=== PATIENT | female | born 1985 | race Caucasian/White ===

== ENCOUNTER 2025-07-09 16:03 | Outpatient (CLI) | payer BC, SELFPAY ==
[2025-07-11 19:08] LABS: QNTFERON TB Mitogen Value > 10.00 IU/mL (.); QNTFERON TB Nil Value 0.06 IU/mL (.); QNTFERON TB1+ Ag Value 0.06 IU/mL (.); QNTFERON TB2+ Ag Value 0.08 IU/mL (.); QNTIFERON TB Positive Criteria Negative (Negative)
== END 2025-07-09 23:59 | disposition home or self-care (01) ==
LOC: MTLAB 16:09
PROVIDERS: PCP Internal Medicine; Referring Provider Physician Assistant; Visit Provider Physician Assistant
DX: L40.0 Psoriasis vulgaris (principal)
CPT/HCPCS: 36415; 86480